=== PATIENT | male | born 2000 | race African-American/Black ===

== ENCOUNTER 2024-08-20 03:29 | Emergency (ER) | payer OTHER ==
[~2024-08-20] VITALS: Ht 170.2 cm; Wt 59.0 kg
--- NOTE | ~2024-08-20 | EKG ---
[facility] [address] [place], [place] [address] Draft EK completed, results pending confirmation PATIENT NAME: KING BRUMFIELD Electrocardiogram DATE OF : 2 PHYSICIAN: PRELIMINARY REPORT #: [id number] REPORT IS CONFIDENTIAL AND NOT TO BE RELEASED WITHOUT AUTHORIZATION
[2024-08-20] MEDS ORDERED: FAMOTIDINE 20 MG/ 2 ML VIAL IV ONE (03:45)
[2024-08-20 03:46] LABS: BASOPHILS 0.3 % (0.2-1.2); EOSINOPHILS 1.0 % (0.8-7.0); LYMPHOCYTES 19.9 % (21.8-53.1); MCH 28.7 PG (25.7-32.2); MCHC 33.8 g/dL (32.3-36.5); MCV 84.8 fL (79.0-92.2); MONOCYTES 9.9 % (5.3-12.2); NEUTROPHILS 68.6 % (34.0-67.9); RBC 5.40 M/uL (4.63-6.08)
[2024-08-20 04:06] LABS: ALT (SGPT) 16 U/L (14-59); AST (SGOT) 19 U/L (15-37); GLOMERULAR FILTRATION RATE,EST 127 mL/min (>60); PROTEIN, TOTAL 8.1 g/dL (6.4-8.2); UREA NITROGEN 10 mg/dL (7-18)
[2024-08-20 05:46] VITALS: BP 125/85
== END 2024-08-20 05:46 | disposition other institution, planned readmission (95) ==
LOC: ED 03:29
PROVIDERS: Internal Medicine
DX: R07.2 Precordial pain (principal); Z91.018 Allergy to other foods
CPT/HCPCS: 36415; 71045; 80053; 83690; 83735; 84484; 85025; 85379; 93005; 93010; 96374; 99285-25